=== PATIENT | male | born 1990 | race Caucasian/White ===

== ENCOUNTER 2017-01-12 13:54 | Emergency (ER) | payer BC ==
[~2017-01-12] VITALS: Ht 182.9 cm; Wt 70.3 kg
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
[2017-01-12] MEDS ORDERED: HYDROCODONE/APAP 10/325MG 1 EA TABLET ONE (14:14)
[2017-01-12] MEDS ORDERED: TDAP [DIPH/PERTUSSIS/TET] 0.5 ML VIAL IM ONE ×2 (14:15→14:30)
[2017-01-12] MEDS ORDERED: HYDROCODONE/APAP 10/325MG 1 EA TABLET PO ONE (14:30)
[2017-01-12] MEDS ORDERED: SILVER SULFADIAZINE CREAM 25 GM TUBE TP ONE ×2 (14:30→15:00)
[2017-01-12] MEDS ORDERED: SILVER SULFADIAZINE CREAM 25 GM TUBE ONE (14:33)
--- NOTE | 2017-01-12 15:00 | NUR ---
AMY AT FOR WOUND CARE.
[2017-01-12 15:24] VITALS: BP 128/88
--- NOTE | 2017-01-12 15:25 | NUR ---
Patient discharged to home in stable condition. Written and verbal after care instructions given. Patient verbalizes understanding of instruction.
== END 2017-01-12 15:25 | disposition home or self-care (01) ==
LOC: ER 13:57
DX: S90.32XA Contusion of left foot, initial encounter (principal); S30.810A Abrasion of lower back and pelvis, initial encounter; S90.812A Abrasion, left foot, initial encounter; V29.9XXA Motorcycle rider (driver) (passenger) injured in unspecified traffic accident, initial encounter; Y93.89 Activity, other specified; Y92.89 Other specified places as the place of occurrence of the external cause; Y99.8 Other external cause status
CPT/HCPCS: 73140; 73630; 90471; 90715; 99284; A4606; A6402 ×2; Z7610

== ENCOUNTER 2017-01-23 10:43 | Emergency (ER) | payer BC ==
[~2017-01-23] VITALS: Ht 182.9 cm; Wt 77.1 kg
--- NOTE | 2017-01-23 11:00 | NUR ---
PT CALLED TO TRIAGE, PT NOT IN WAITING ROOM
--- NOTE | 2017-01-23 11:38 | NUR ---
PT CALLED TO TRIAGE, PT NOT IN WAITING ROOM
[2017-01-23 11:42] VITALS: BP 160/95
== END 2017-01-23 12:15 | disposition home or self-care (01) ==
LOC: ER 10:46
DX: S90.812A Abrasion, left foot, initial encounter (principal); V89.2XXA Person injured in unspecified motor-vehicle accident, traffic, initial encounter; Y93.89 Activity, other specified; Y92.89 Other specified places as the place of occurrence of the external cause; Y99.9 Unspecified external cause status
CPT/HCPCS: 99282; A4606; Z7610